=== PATIENT | male | born 1935 | race Two or more races ===

== ENCOUNTER 2024-08-02 08:49 | Emergency (ER) | payer OTHER ==
[~2024-08-02] VITALS: Ht 170.2 cm; Wt 54.4 kg
[~2024-08-02 08:49] MED LIST: CELECOXIB200 MG
[2024-08-02] MEDS ORDERED: FAMOTIDINE/PF 20 MG in 0.9 % SODIUM CHLORIDE 8 ML IV PUSH STA (09:06)
[2024-08-02] MEDS ORDERED: ONDANSETRON HCL 2 MG/ML VIAL IV STA (09:07)
[2024-08-02] MEDS ORDERED: FAMOTIDINE/PF 20 MG/2 ML VIAL ONE (09:13)
[2024-08-02] MEDS ORDERED: ONDANSETRON HCL 2 MG/ML VIAL ONE (09:13)
[2024-08-02] MEDS ORDERED: 0.9 % SODIUM CHLORIDE 1,000 ML IV SCH (09:15)
[2024-08-02 09:38] LABS: HEMATOCRIT 29.9 % (39.0-48.0); HEMOGLOBIN 10.1 g/dL (13-16.00); MEAN CELL VOLUME 82.6 fL (80.0-100.00); MEAN CORPUSCULAR HEMOGLOBIN 27.9 pg (27.00-32.0); MEAN CORPUSCULAR HGB CONC 33.8 g/dl (32.0-36.0); PLATELET COUNT 272 K/uL (150-450); RED BLOOD COUNT 3.61 M/uL (4.00-6.00); RED CELL DISTRIBUTION WIDTH 15.6 % (11.5-14.5)
[2024-08-02 10:05] LABS: CALCIUM 8.5 mg/dL (8.5-10.1); CREATININE SERUM 0.76 mg/dL (0.70-1.30); GFR 96.79; POTASSIUM 3.84 mEq/L (3.5-5.1)
== END 2024-08-02 15:48 | disposition home or self-care (01) ==
LOC: ER 08:51
PROVIDERS: Emergency Medicine
DX: K29.70 Gastritis, unspecified, without bleeding (principal); R10.9 Unspecified abdominal pain
CPT/HCPCS: 36415; 96365; 96366; 99282; J2405; J3490; J7030

== ENCOUNTER 2024-08-06 19:18 | Inpatient (IN) | payer OTHER ==
[~2024-08-06] VITALS: Ht 167.6 cm; Wt 54.0 kg
--- NOTE | 2024-08-06 19:44 | NUR ---
SE RECIBE PTE EN AMBULANCIA ALERTA Y ACTIVO EN COMPANIA DE PARAMEDICOS QUIENES REFIERE TRAER A PTE POR HIPOTENSION Y DIF.RESPIRATORIA. AL MOMENTO DE TRIAGE PTE PRESENTA 98/62, 130 LAT/MIN Y 93%. SE REALIZA EKG Y SE PRESENTA A . SE UBICA PTE EN UNIDAD DE CHEST PAIN #18, SE CONECTA A MONITOR CARDIACO Y OXIMETRIA DE PULSO CONTINUA.
[2024-08-06] MEDS ORDERED: LABETALOL HCL 20MG/4ML SYRINGE IV ONE (20:15)
[2024-08-06] MEDS ORDERED: FAMOtidine 10 MG/ML (4ML VIAL) IV ONE (20:15)
[2024-08-06] MEDS ORDERED: PIPERACILLIN/TAZOBACTAM SODIUM 3.375 GM VIAL IV ONE ×2 (20:15→20:18)
[2024-08-06] MEDS ORDERED: 0.9 % SODIUM CHLORIDE 1,000 ML IV ONE (20:15)
[2024-08-06] MEDS ORDERED: LABETALOL HCL 100 MG/20 ML ML ONE (20:17)
[2024-08-06] MEDS ORDERED: FAMOTIDINE/PF 20 MG/2 ML VIAL ONE (20:18)
[2024-08-06 21:20] LABS: HEMATOCRIT 33.6 % (39.0-48.0); HEMOGLOBIN 10.8 g/dL (13-16.00); MEAN CELL VOLUME 84.9 fL (80.0-100.00); MEAN CORPUSCULAR HEMOGLOBIN 27.2 pg (27.00-32.0); PLATELET COUNT 379 K/uL (150-450); RED BLOOD COUNT 3.95 M/uL (4.00-6.00); RED CELL DISTRIBUTION WIDTH 15.8 % (11.5-14.5)
--- NOTE | 2024-08-06 21:21 | NUR ---
SE ORIENTA FAMILIAR Y PTE SOBRE TX, REFIEREN ENTENDER Y ACEPTAR, SE LE ANA MUESTRAS DE LABORATORIO, SE ADMINISTRAN MEDICAMENTOS DERICK ORDEN MEDICA Y SE INSERTA ARTEAGA CATHETER. SE MANTIENE BAJO OBSERVACION POR CAMBIOS SIGNIFICATIVOS.
[2024-08-06 21:31] LABS: PH,URINE 5.5 (5.0-8.0); URINE APPEARANCE Cloudy; URINE BILIRRUBIN Small (NEGATIVE); URINE BLOOD Moderate; URINE COLOR Dark Yellow; URINE GLUCOSE Negative (NEGATIVE); URINE KETONE Trace (NEGATIVE); URINE LEUKOCYTE Trace; URINE NITRATE Negative; URINE PROTEIN 30 (NEGATIVE)
[2024-08-06 21:32] LABS: URINE BACTERIA 11.9 uL (0.0-1933); URINE EPITHELIAL CELLS 8.5 uL (0.0-38.8); URINE RBC 28.7 uL (0.0-20.8); URINE WBC 12.5 uL (0.0-23.2)
[2024-08-06 21:39] LABS: ERYTHROCYTE SEDIMENTATION RATE 34 mm/hr
[2024-08-06 21:43] LABS: ALBUMIN 2.5 gm/dL (3.4-5.0); BILIRUBIN TOTAL 1.24 mg/dL (0.3-1.2); BILIRUBIN,CONJUGATED 0.61 mg/dL (0.0-0.2); BILIRUBIN,UNCONJUGATED 0.63 mg/dL (0.0-0.6); CALCIUM 8.7 mg/dL (8.5-10.1); CREATININE SERUM 1.46 mg/dL (0.70-1.30); GFR 45.57; GLOBULINA 3.6 G/DL (2.4-3.5); POTASSIUM 3.55 mEq/L (3.5-5.1); TOTAL PROTEIN 6.1 gm/dL (6.4-8.2)
[2024-08-06 21:44] LABS: C-REACTIVE PROTEIN 18.8 MG/DL (0.00-0.29)
[2024-08-06 21:59] LABS: INR 0.97; PROTHROMBIN TIME 10.6 SECONDS (9.0-11.5)
[2024-08-06 22:03] LABS: URINE MUCUS MODERATE
[2024-08-06 22:03] LABS: D DIMER 4.15 MG/L; PARTIAL THROMBOPLASTIN TIME 30.9 SECONDS (22.0-34.0)
[2024-08-06 22:13] LABS: ABG PH 7.493 (7.35-7.45); ABG PO2 76.4 mmHg (80-100); ABG pCO2 26.1 mmHg (35-45); BICARBONATE 19.6 mmol/l (23-25); SaO2 96.3 %; Tco2 20.4 mmol/l; allen test SATISFACTORY; o2 50 %; puncture site RADIAL LEFT
[2024-08-07] VITALS (18 sets, daily range): BP systolic 44–121; BP diastolic 33–98; O2SAT 79–100
[2024-08-07] MEDS ORDERED: PIPERACILLIN/TAZOBACTAM SODIUM 2.25 GM in DEXTROSE 5 % IN WATER 50 ML IV SCH
[2024-08-07] MEDS ORDERED: IPRATROPIUM BROMIDE 0.5 MG/2.5 ML AMPUL.NEB IH SCH
[2024-08-07] MEDS ORDERED: FUROsemide 20 MG/2 ML VIAL IV SCH (00:02)
[2024-08-07] MEDS ORDERED: PANTOPRAZOLE SODIUM 40 MG/VIAL VIAL IV SCH (00:02)
[2024-08-07] MEDS ORDERED: 0.9 % SODIUM CHLORIDE 1,000 ML IV SCH (00:15)
[2024-08-07] MEDS ORDERED: ONDANSETRON HCL 4 MG in 0.9 % SODIUM CHLORIDE 50 ML IV PRN (00:15)
[2024-08-07] MEDS ORDERED: 0.9 % SODIUM CHLORIDE 500 ML IV ONE (01:00)
[2024-08-07] MEDS ORDERED: LIDOCAINE HCL VISCOUS 20MG/ML BLIST 15ML MM ONE (06:50)
[2024-08-07] MEDS ORDERED: IPRATROPIUM BROMIDE 0.5 MG/2.5 ML AMPUL.NEB IH ONE (07:49)
[2024-08-07 13:49] LABS: ob POSITIVE (NEGATIVE)
[2024-08-07] MEDS ORDERED: MORPHINE SULFATE 2 MG/ML CARTRIDGE IV ONE (21:00)
[2024-08-08] VITALS (14 sets, daily range): BP systolic 62–117; BP diastolic 38–84; O2SAT 88–100
[2024-08-08] MEDS ORDERED: IPRATROPIUM BROMIDE 0.5 MG/2.5 ML AMPUL.NEB IH ONE (08:40)
[2024-08-08] MEDS ORDERED: MORPHINE SULFATE 4 MG/ML CARTRIDGE IV STA (10:27)
[2024-08-08] MEDS ORDERED: MORPHINE SULFATE 4 MG/ML CARTRIDGE IV PRN ×2 (11:30→19:52)
[2024-08-09 01:02] VITALS: BP 90/50; O2SAT 99
[2024-08-09 08:44] VITALS: BP 70/50; O2SAT 96
[2024-08-09 09:22] VITALS: O2SAT 23
[2024-08-09] MEDS ORDERED: DEXTROSE 5 % AND 0.9 % NACL 1,000 ML IV SCH (16:15)
[2024-08-09] MEDS ORDERED: PIPERACILLIN/TAZOBACTAM SODIUM 2.25 GM VIAL IV ONE (16:16)
[2024-08-09 17:00] VITALS: O2SAT 96
[2024-08-09 19:23] VITALS: BP 85/49
[2024-08-10 01:40] VITALS: BP 144/80; O2SAT 94
[2024-08-10 05:39] VITALS: O2SAT 0
== END 2024-08-10 07:14 | disposition expired | DRG 871 ==
LOC: ER 19:18 → MEDJ 08-07 00:02 → ICU-2 08-07 00:02 → MEDJ 08-08 08:39
PROVIDERS: General Practice; ADMIT Internal Medicine; ATTEND Internal Medicine
PROC: BW21ZZZ Computerized Tomography (CT Scan) of Abdomen and Pelvis (ICD-10-PCS; 2024-08-06)
PROC: 4A12X4Z Monitoring of Cardiac Electrical Activity, External Approach (ICD-10-PCS; 2024-08-06)
PROC: BB24ZZZ Computerized Tomography (CT Scan) of Bilateral Lungs (ICD-10-PCS; 2024-08-06)
PROC: B246ZZZ Ultrasonography of Right and Left Heart (ICD-10-PCS; 2024-08-07)
PROC: 0D9670Z Drainage of Stomach with Drainage Device, Via Natural or Artificial Opening (ICD-10-PCS; principal; 2024-08-08)
DX: A41.9 Sepsis, unspecified organism (principal); I50.31 Acute diastolic (congestive) heart failure; J18.9 Pneumonia, unspecified organism; K56.699 Other intestinal obstruction unspecified as to partial versus complete obstruction; K55.9 Vascular disorder of intestine, unspecified; C18.9 Malignant neoplasm of colon, unspecified; N17.9 Acute kidney failure, unspecified; J90 Pleural effusion, not elsewhere classified; Z68.1 Body mass index [BMI] 19.9 or less, adult; R57.1 Hypovolemic shock; E86.0 Dehydration; J43.8 Other emphysema; N18.9 Chronic kidney disease, unspecified; K59.00 Constipation, unspecified; Z66 Do not resuscitate